=== PATIENT | female | born 1935 | race Caucasian/White ===

== ENCOUNTER 2024-10-09 02:12 | Inpatient (IN) | payer MEDICARE, OTHER ==
[~2024-10-09] VITALS: Ht 154.9 cm; Wt 50.4 kg
[2024-10-09 03:14] LABS: Basophils # (auto) 0 10 ^3/uL (0-0.2); Basophils % (auto) 0.5 % (0.0-2.0); Eosinophils # (auto) 0 10 ^3/uL (0-0.8); Eosinophils % (auto) 0.1 % (0.0-7.0); Hematocrit 36.8 % (41.0-53.0); Hemoglobin 12.3 g/dL (13.5-17.5); Lymphocytes # (auto) 0.9 10 ^3/uL (0.4-5.4); Mean Corpuscular Hemoglobin 29.8 pg (28.0-32.0); Mean Corpuscular Hgb Conc. 33.3 g/dL (32.0-36.0); Mean Corpuscular Volume 89.4 fL (80.0-100.0); Monocytes # (auto) 0.7 10 ^3/uL (0-1.3); Monocytes % (auto) 12.9 % (0.0-12.0); Neutrophils # (auto) 3.8 10 ^3/uL (1.6-8.6); Neutrophils % (auto) 70.5 % (37.0-80.0); Platelet Count (auto) 216 10^3/uL (140-450); Red Blood Cells 4.12 10^6/uL (4.5-5.90); Red Cell Distribution Width 13.3 % (11.8-14.3); White Blood Cell 5.4 10^3/uL (4.4-10.8)
[2024-10-09 03:26] LABS: Chloride 106 mmol/L (98-107); Potassium 3.8 mmol/L (3.5-5.1); Sodium 137 mmol/L (136-145)
[2024-10-09 03:27] LABS: Anion Gap 10 (5-15); Carbon Dioxide 21 mmol/L (20-31)
[2024-10-09 03:32] VITALS: PULSE 70; RESP 15; O2SAT 98
[2024-10-09 03:32] LABS: Blood Urea Nitrogen 23 mg/dL (9-23)
--- NOTE | 2024-10-09 03:53 | DVH ---
CHEST RADIOGRAPH Indication: chest pain Technique: Single frontal view of the chest was obtained Comparison: None IMPRESSION: Heart appears normal in size. The lungs appear clear without focal airspace opacity, effusion, or pn eumothorax
[2024-10-09 03:54] LABS: Glucose 106 mg/dL (74-106)
[2024-10-09 03:56] LABS: Urine Bacteria FEW /hpf (None Seen); Urine Blood Negative /uL (Negative); Urine Clarity Clear (Clear); Urine Color Colorless (Yellow); Urine Protein, UAD Negative (Negative); Urine Specific Gravity 1.007 (1.001-1.035); Urine Squamous Epithelial Cell FEW /hpf (<5); Urine Urobilinogen Normal (Negative); Urine WBC 3 /HPF (0-3); Urine pH 5.5 (5.0-9.0)
--- NOTE | 2024-10-09 05:38 | ECG ---
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
--- NOTE | 2024-10-09 05:38 | ECG ---
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
--- NOTE | 2024-10-09 05:38 | ECG ---
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
--- NOTE | 2024-10-09 06:01 | ED.PDOC ---
History of Present Illness HPI Comments 89 y/o F, with a history of CKF, HLD, and HTN, is BIBA for c/o left-sided chest pain, that radiates to her left-arm, nausea, and vomiting, today. Per EMS report, patient endorses on sudden and unprovoked onset of severe, 10/10 pain at around 2200, last night, with 1x episode of nausea and vomiting. Upon arrival to ED, patient endorses on pain subsiding since. She report no additional significant events, such as recent sick contact, strenuous activities, stressors, or further relevant medical history. Patient denies any chest pain, hematemesis, fever, chills, or other associated symptoms at this time. 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 Past Medical History PAST MEDICAL HISTORY: CKF, High Lipids, HTN Surgical History: Denies all surgeries Family History Family History: Unknown Social History Smoker: Non-Smoker Alcohol: Denies ETOH Use Drugs: Denies Drug Use Lives In: Home All Other Systems: Reviewed and Negative (Comprehensive systems review obtained and negative except for what is stated in the HPI.) Physical Exam General Appearance: No Apparent Distress, Normal HEENT: Normal ENT Inspection, Pharynx Normal, TMs Normal Neck: Full Range of Motion, Non-Tender, Normal, Normal Inspection Respiratory: Chest Non-Tender, Lungs Clear, No Accessory Muscle Use, No Respiratory Distress, Normal Breath Sounds Cardiovascular: No Edema, No JVD, No Murmur, No Gallop, Normal Peripheral Pulses, Regular Rate/Rhythm Breast Exam: Deferred Gastrointestinal: No Organomegaly, Non Tender, No Pulsatile Mass, Normal Bowel Sounds, Soft Genitalia: Deferred Pelvic: Deferred Rectal: Deferred Extremities: No calf tenderness, Normal capillary refill, Normal inspection, Normal range of motion, Non-tender, No pedal edema Musculoskeletal : Apperance: Normal Neurologic: Alert, court administrator II-XII nml as Tested, No Motor Deficits, Normal Affect, Normal Mood, No Sensory Deficits Cerebellar Function: Normal Reflexes: Normal Skin: Dry, Normal Color, Warm Lymphatic: No Adenopathy Was a procedure done? Was a procedure done?: No EKG EKG #1: Pulse Rate (adult): 71 [place]: Normal Cardiac Rhythm: NSR Block: None Hypertrophy: None ST: Normal EKG #2: Pulse Rate (adult): 68 [place]: Normal Cardiac Rhythm: NSR Block: None Hypertrophy: None ST: Normal Differential Dx Considerations may include: OR, PE, PNA, ACS, viral syndrome, URI, musculoskeletal pain, among others X-Ray, Labs, Meds, VS Vital Signs Date Time Temp Pulse Resp B/P (MAP) Pulse Ox O2 Delivery O2 Flow Rate FiO2 10/09/24 05:10 65 15 148/61 (90) 96 10/09/24 05:01 68 10/09/24 03:32 70 15 98 Room Air* 0 21 10/09/24 03:10 71 10/09/24 02:58 98.6 72 15 172/67 (102) 97 98.6 10/09/24 02:43 71 10/09/24 02:29 98.0 79 16 204/83 (123) 98 98.0 10/09/24 02:15 82 Lab Test 10/09/24 04:40 10/09/24 03:01 10/09/24 02:45 Range/Units Troponin I High Sensitivity 10 10 </=54 ng/L White Blood Count 5.4 4.4-10.8 10^3/uL Red Blood Count 4.12 L 4.5-5.90 10^6/uL Hemoglobin 12.3 L 13.5-17.5 g/dL Hematocrit 36.8 L 41.0-53.0 % Mean Corpuscular Volume 89.4 80.0-100.0 fL Mean Corpuscular Hemoglobin 29.8 28.0-32.0 pg Mean Corpuscular Hemoglobin Concent 33.3 32.0-36.0 g/dL Red Cell Distribution Width 13.3 11.8-14.3 % Platelet Count 216 140-450 10^3/uL Mean Platelet Volume 7.7 6.9-10.8 fL Neutrophils (%) (Auto) 70.5 37.0-80.0 % Lymphocytes (%) (Auto) 16.0 10.0-50.0 % Monocytes (%) (Auto) 12.9 H 0.0-12.0 % Eosinophils (%) (Auto) 0.1 0.0-7.0 % Basophils (%) (Auto) 0.5 0.0-2.0 % Neutrophils # (Auto) 3.8 1.6-8.6 10 ^3/uL Lymphocytes # (Auto) 0.9 0.4-5.4 10 ^3/uL Monocytes # (Auto) 0.7 0-1.3 10 ^3/uL Eosinophils # (Auto) 0 0-0.8 10 ^3/uL Basophils # (Auto) 0 0-0.2 10 ^3/uL Nucleated Red Blood Cells 0.0 % Sodium Level 137 136-145 mmol/L Potassium Level 3.8 3.5-5.1 mmol/L Chloride Level 106 98-107 mmol/L Carbon Dioxide Level 21 20-31 mmol/L Anion Gap 10 5-15 Blood Urea Nitrogen 23 9-23 mg/dL Creatinine 1.15 0.700-1.30 mg/dL Glomerular Filtration Rate Calc 61 >90 mL/min BUN/Creatinine Ratio 20.0 10.0-20.0 Serum Glucose 106 74-106 mg/dL Calcium Level 10.0 8.7-10.4 mg/dL Urine Color Colorless Yellow Urine Clarity Clear Clear Urine pH 5.5 5.0-9.0 Urine Specific [place] 1.007 1.001-1.035 Urine Protein Negative Negative Urine Ketones Negative Negative Urine Blood Negative Negative /uL Urine Nitrite Negative Negative Urine Bilirubin Negative Negative Urine Urobilinogen Normal Negative mg/dL Urine Leukocyte Esterase Negative Negative /uL Urine RBC 3 0 - 3 /hpf Urine Microscopic WBC 3 0-3 /HPF Urine Squamous Epithelial Cells Few <5 /hpf Urine Bacteria Few H None Seen /hpf Urine Glucose Normal Normal mg/dL [place] [id number] Ph: [phone] DIAGNOSTIC IMAGING Diagnostic Imaging Report : [id number] Signed PATIENT: ROSETTA GARCIA ACCT: [id number] UNIT: [id number] : 1935 LOC: ER ROOM / BED: / AGE / SEX: 89 / M ADM STATUS: REG ER SERVICE [id number] ORDERING PHYSICIAN: SHAMAR PARIKH MD PROCEDURE(s): CXRP - CHEST PORTABLE REASON: chest pain ORDER NUMBER(s): [id number], ACCESSION NUMBER(s): [id number] CHEST RADIOGRAPH Indication: chest pain Technique: Single frontal view of the chest was obtained Comparison: None IMPRESSION: Heart appears normal in size. The lungs appear clear without focal airspace opacity, effusion, or pneumothorax ATED BY: SANDRA DUBOIS MD DICTATED DATE/TIME: 10/09/24350 SIGNED BY: SANDRA DUBOIS MD SIGNED DATE/TIME: 10/09/24350 CC: Time of 1ST Reevaluation: 04:00 Reevaluation 1ST: Unchanged Patient Education/Counseling: Diagnosis, Treatment Family Education/Counseling: No Family Present Additional Information Previous visit documents reviewed: n/a The following tests were ordered, and results were reviewed by me: UA, troponin, CXR, CBC, BMP. EKG Additional Information was gathered from interviewing the following independent historians: EMS I reviewed and agreed with the following test results read by other providers: CXR I discussed treatment and results with medical personnel and: Patient Departure 1 Departure Time of Disposition: 06:01 (Patient presented with chest pain that was concerning for possible STEMI, ACS, PE, Pneumonia, Muscle Strain, COPD, Dissection. Data: 1. I ordered and reviewed the result of at least 3 labs including a CBC, BMP, and Troponin. 2. I independently interpreted the following tests: EKG which shows sinus arrhythmia and Chest X-ray which shows benign chest.Risk:This patient has a high risk of morbidity due to further diagnostic testing or treatment and may suffer from an acute cardiac or respiratory disorder. Workup reveals concern for ACS and patient should be admitted for further workup and possible expert consultation. ) Impression: Primary Impression: Acute chest pain Additional Impression: Shortness of breath Disposition: ADMITTED INPATIENT Admit to: Med Surg Condition: Serious Critical Care Note Critical Care Time?: Yes Critical care comment: Acute chest pain Authorized and Performed by: Shamar Parikh MD Total critical care time: Approximately 39 minutes Due to a high probability of clinically significant, life threatening deteriora tion, the patient required my highest level of preparedness to intervene emergently and I personally spent this critical care time directly and personally managing the patient. This critical care time included obtaining a history; examining the patient; pulse oximetry; ordering and review of studies; arranging urgent treatment with development of a management plan; evaluation of patient's response to treatment; frequent reassessment; and, discussions with other providers. This critical care time was performed to assess and manage the high probability of imminent, life-threatening deterioration that could result in multi-organ failure. It was exclusive of separately billable procedures and treating other patients and teaching time. Please see my other sections and the rest of the note for further information on patient assessment and treatment. Stability Stability form required: No Heart Score Heart Score: Heart Score Response (Comments) Value History Moderate Suspicious 1 EKG Normal 0 Age >65 2 Risk Factors >3 or Hx ASHD 2 Troponin Normal limit 0 Total 5 I personally scribed for SHAMAR PARIKH MD ([email or web address]) on 10/09/24 at 06:01. Electronically submitted by Aguila Allen ([email or web address]). SHAMAR PARIKH MD Oct 09, 2024 06:01
[2024-10-09 08:09] VITALS: PULSE 70; RESP 12; O2SAT 97
[2024-10-09] MEDS ORDERED: ATOR40TA52 PO (10:14)
[2024-10-09] MEDS ORDERED: LOSA-535 PO (10:14)
[2024-10-09] MEDS ORDERED: ONDANSETRON HCL 4 MG/2 ML VIAL IV PRN (10:15)
[2024-10-09] MEDS ORDERED: DOCUSATE SOD 100 MG CAP PO PRN (10:15)
[2024-10-09] MEDS ORDERED: ACETAMINOPHEN 325 MG TAB PO PRN (10:15)
[2024-10-09] MEDS ORDERED: NITROGLYCERIN 0.4 MG SL TAB SL PRN (10:15)
[2024-10-09] MEDS ORDERED: MORPHINE SULFATE INJ 2 MG/ml SYRG IV PRN (10:15)
--- NOTE | 2024-10-09 10:19 | DVHHP2 ---
History of Present Illness Reason for Visit: Chest Pain History of Present Illness Wendi Serna, is an 89-year-old female with past medical history of chronic renal insufficiency, hypertension, and hyperlipidemia, who came in for chest pain. Patient states she was awoken about 0200 with chest pain that radiated to her left arm. She states she felt like she was having a heart attack, so she woke up her family and had them call EMS. On assessment patient's rhythm appeared to have possible changes, another EKG was completed. Patient is having frequent PVCs. Cardiovascular: HTN, hyperipidemia Renal/: Chronic renal insuff Past Surgical History: Other (back and bladder surgery) Smoke: No ALCOHOL: none Drugs: None Lives: with Family Domestic Violence: Neg Review of Systems Constitutional: No: Fever, Chills, Sweats, Weakness, Malaise, Other Eyes: No: Pain, Vision change, Conjunctivae inflammation, Eyelid inflammation, Other, Redness ENT: No: Ear pain, Ear discharge, Nose pain, Nose discharge, Nose congestion, Mouth pain, Mouth swelling, Throat pain, Throat swelling, Other Respiratory: No: Cough, Dry, Shortness of breath, SOB with excertion, Wheezing, Hemoptysis, Pleuritic Pain, Sputum, Wheezing, Other Cardiovascular: Chest Pain (radiates to left arm); No: Palpitations, Orthopnea, Paroxysmal Noc. Dyspnea, Edema, Lt Headedness, Other Gastrointestinal: No: Nausea, Vomiting, Abdominal Pain, Diarrhea, Constipation, Melena, Hematochezia, Other Genitourinary: No Dysuria, No Frequency, No Incontinence, No Hematuria, No Retention, No Other Musculoskeletal: No: other, neck pain, shoulder pain, arm pain, back pain, hand pain, leg pain, foot pain Skin: No: Rash, Lesions, Jaundice, Bruising, Other Neurological: No: Weakness, Numbness, Incoordination, Change in speech, Confusion, Seizures, Other Allergies: Coded Allergies: NO KNOWN ALLERGIES (Unverified , 10/09/24) Exam Vital Signs Vital Signs Date Time Temp Pulse Resp B/P (MAP) Pulse Ox O2 Delivery O2 Flow Rate FiO2 10/09/24 08:09 70 12 97 Room Air* 0 21 10/09/24 07:45 98.1 162/65 (97) 98.1 General Appearance: Alert, Oriented X3, Cooperative, mild distress HEENT: Atraumatic, PERRLA, Mucous membr. moist/pink Respiratory: Clear to auscultation, Normal air movement Cardiovascular: Regular rate, Normal S1, Normal S2, Other (frequent PVCs) Abdominal: Normal bowel sounds, Soft, No tenderness, No hepatospenomegaly Extremities: No clubbing, No cyanosis, No edema, Normal pulses Skin: No rashes, No breakdown, No significant lesion Neuro: Normal gait, Normal speech, Strength at 5/5 X4 ext, Normal tone, Sensat ion intact Psych/Mental Status: Mental status NL, Mood NL Labs/Xrays Labs Test 10/09/24 06:40 10/09/24 03:01 10/09/24 02:45 Range/Units Troponin I High Sensitivity 9 </=54 ng/L White Blood Count 5.4 4.4-10.8 10^3/uL Red Blood Count 4.12 L 4.5-5.90 10^6/uL Hemoglobin 12.3 L 13.5-17.5 g/dL Hematocrit 36.8 L 41.0-53.0 % Mean Corpuscular Volume 89.4 80.0-100.0 fL Mean Corpuscular Hemoglobin 29.8 28.0-32.0 pg Mean Corpuscular Hemoglobin Concent 33.3 32.0-36.0 g/dL Red Cell Distribution Width 13.3 11.8-14.3 % Platelet Count 216 140-450 10^3/uL Mean Platelet Volume 7.7 6.9-10.8 fL Neutrophils (%) (Auto) 70.5 37.0-80.0 % Lymphocytes (%) (Auto) 16.0 10.0-50.0 % Monocytes (%) (Auto) 12.9 H 0.0-12.0 % Eosinophils (%) (Auto) 0.1 0.0-7.0 % Basophils (%) (Auto) 0.5 0.0-2.0 % Neutrophils # (Auto) 3.8 1.6-8.6 10 ^3/uL Lymphocytes # (Auto) 0.9 0.4-5.4 10 ^3/uL Monocytes # (Auto) 0.7 0-1.3 10 ^3/uL Eosinophils # (Auto) 0 0-0.8 10 ^3/uL Basophils # (Auto) 0 0-0.2 10 ^3/uL Nucleated Red Blood Cells 0.0 % Sodium Level 137 136-145 mmol/L Potassium Level 3.8 3.5-5.1 mmol/L Chloride Level 106 98-107 mmol/L Carbon Dioxide Level 21 20-31 mmol/L Anion Gap 10 5-15 Blood Urea Nitrogen 23 9-23 mg/dL Creatinine 1.15 0.700-1.30 mg/dL Glomerular Filtration Rate Calc 61 >90 mL/min BUN/Creatinine Ratio 20.0 10.0-20.0 Serum Glucose 106 74-106 mg/dL Calcium Level 10.0 8.7-10.4 mg/dL Urine Color Colorless Yellow Urine Clarity Clear Clear Urine pH 5.5 5.0-9.0 Urine Specific [place] 1.007 1.001-1.035 Urine Protein Negative Negative Urine Ketones Negative Negative Urine Blood Negative Negative /uL Urine Nitrite Negative Negative Urine Bilirubin Negative Negative Urine Urobilinogen Normal Negative mg/dL Urine Leukocyte Esterase Negative Negative /uL Urine RBC 3 0 - 3 /hpf Urine Microscopic WBC 3 0-3 /HPF Urine Squamous Epithelial Cells Few <5 /hpf Urine Bacteria Few H None Seen /hpf Urine Glucose Normal Normal mg/dL CHEST RADIOGRAPH IMPRESSION: Heart appears normal in size. 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 Procedure Category Date Status Time Admit ADMIT 10/09/24 Transmitted 10:07 Code Status CODE 10/09/24 Transmitted 10:07 2 Gm Sodium Diet DIET 10/09/24 Transmitted Lunch Hydrocodone-Acet PHA 10/09/24 Transmitted 5/325mg Tab ([place] 10:15 Ondansetron Hcl PHA 10/09/24 Transmitted (Zofran) 10:15 Docusate Sodium PHA 10/09/24 Transmitted Capsule (Colace 10:15 Complete Blood Count LAB 10/10/24 Verified 04:00 Comprehensive LAB 10/10/24 Verified Metabolic Panel 04:00 Echo 2d Mode Cardiac US 10/09/24 Transmitted DOP 10:07 Condition: Serious [place] 10/09/24 Transmitted 10:07 Acetaminophen Tablet PHA 10/09/24 Transmitted (Tylenol Tablet) 10:15 Nitroglycerin [facility] 10/09/24 Transmitted Sublingual (Ntrostat 10:15 Morphine Sulfate PHA 10/09/24 Transmitted Injection 10:15 Stat Ekg For Chest [facility] 10/09/24 Transmitted Pain 10:07 Notify Md Of Changes [facility] 10/09/24 Transmitted From Base 10:07 Flotation Tender For [facility] 10/09/24 Transmitted 24 Hours 10:07 Emergency Dysrhythmia [facility] 10/09/24 Transmitted Protocol 10:07 Rhythm Strips Once [facility] 10/09/24 Transmitted Every Shift 10:07 Oxygen By Nasal RT 10/09/24 Transmitted Cannula 10:07 * Cardiology Consult CONS 10/09/24 Transmitted 10:07 Date of Service: Oct 09, 2024 Billing Provider: MAYUR CHOU Common Visit Codes: [id number] INP/OBS CARE (MOD) MAYUR CHOU Oct 09, 2024 10:19
--- NOTE | 2024-10-09 12:11 | DVHINCON2 ---
Date Seen: Oct 09, 2024 Referring Physician SHAYY Cao Reason for Consultation Chest pain History of Present Illness This is an 89-year-old female who presented to the emergency room via EMS with a chief complaint of chest pain during sleep at 2200. Describes her chest pain as substernal, radiating to the left arm, constant, pressure-like, non provoked, and associated with an episode of vomiting prompting her to call 911. At time of assessment the patient denied any further chest pain. She underwent multiple 12 lead electrocardiograms x4 revealing a sinus rhythm with ventricular bigeminy, ventricular trigeminy, and multiple PVCs. There is no evidence of ischemia. Serial troponin levels are negative. Of note, the patient presented with a systolic blood pressure in the 200s mmHg. Significant medical history includes hypertension, dyslipidemia, and anemia. Past Medical History Past medical history reviewed. No other significant than mentioned above. Past Surgical History Bladder Back Family History Family history reviewed. Not significant for cardiovascular disease. Social History Denies the use of illicit drugs, alcohol, or tobacco use. Allergies: Coded Allergies: NO KNOWN ALLERGIES (Unverified , 10/09/24) Home Meds Reported Medications Atorvastatin Calcium (ATORVASTATIN CALCIUM) 40 Mg Tab, 1 TAB PO HS 10/09/24 Losartan Potassium (Losartan Potassium) 100 Mg Tab, 1 TAB PO DAILY 10/09/24 Home Meds Home medications reviewed. Current Medications Current Medications Medications (Trade) Dose Ordered Sig/Veronica Route PRN Reason Start Time Stop Time Status Last Admin Acetaminophen/ Hydrocodone Bitart ([place] 5/325MG Tab) 1 tab Q4HP PRN PO MODERATE PAIN (4-6 PAIN SCALE) 10/09/24 10:15 Ondansetron HCl (Zofran) 4 mg Q4HP PRN IV NAUSEA / VOMITING 10/09/24 10:15 Docusate Sodium (Colace Capsule) 100 mg BIDPRN PRN PO FOR CONSTIPATION 10/09/24 10:15 Acetaminophen (Tylenol Tablet) 650 mg Q6HP PRN PO PAIN SCALE 1-3 OR TEMP>100.4 10/09/24 10:15 Nitroglycerin (Ntrostat Sublingual) 0.4 mg Q5MINP PRN SL FOR CHEST PAIN 10/09/24 10:15 Morphine Sulfate 2 mg Q30M PRN IV FOR CHEST PAIN 10/09/24 10:15 Aspirin 81 mg DAILY PO 10/10/24 10:00 Patient Own Medication 1 tab HS PO 10/09/24 22:00 10/09/24 10:25 DC Patient Own Medication 1 tab DAILY PO 10/10/24 10:00 10/09/24 10:25 DC Atorvastatin Calcium (Lipitor) 40 mg HS PO 10/09/24 22:00 Losartan Potassium (Cozaar Tablet) 100 mg DAILY PO 10/10/24 10:00 Review of Systems Constitutional: No symptom reported Ears, Nose, & Throat: No symptom reported Eyes: No symptom reported Neurological: No symptoms reported Pulmonary/Respiratory: No symptom reported Cardiovascular: Chest pain Gastrointestinal: No symptom reported Genitourinary: No symptom reported Musculoskeletal: No symptom reported Skin: No symptom reported Psychiatric: No symptom reported Endocrine: No symptom reported Hemotologic/Lymphatic: No symptom reported Vital Signs Vital Signs Date Time Temp Pulse Resp B/P (MAP) Pulse Ox O2 Delivery O2 Flow Rate FiO2 10/09/24 08:09 70 12 97 Room Air* 0 21 10/09/24 07:45 98.1 162/65 (97) 98.1 Physical Exam General Appearance: Cooperative. Elder. Well nourished. In no acute distress Head Exam: Normal inspection Neck Exam: Normal inspection. Non-tender. Normal alignment Pulmonary/Respiratory: Chest non-tender. Clear bilateral breath sounds Cardiovascular/Chest: Regular rate and rhythm. S1, S2. Sinus rhythm with multiple PVCs. No murmurs. No JVD. Peripheral Pulses: 2+ Radial (R). 2+ Radial (L). 2+ Pedal (R). 2+ Pedal (L) Abdominal Exam: Normal bowel sounds. Soft. Nontender. No hepatospenomegaly. No masses Ankle Exam: Negative ankle edema Lower extremities: Negative lower extremity edema Neuro/Mental Status: A&O x4. Coherent Thoughts/Psych: Normal thought pattern. Appropriate mood and affect. Good judgement and insight. Pleasant Appearance: In no acute distress Skin Exam: Normal inspection. Normal color. Warm. Dry Labs/Diagnostic Data Labs Test 10/09/24 06:40 10/09/24 03:01 10/09/24 02:45 Range/Units Troponin I High Sensitivity 9 </=54 ng/L White Blood Count 5.4 4.4-10.8 10^3/uL Red Blood Count 4.12 L 4.5-5.90 10^6/uL Hemoglobin 12.3 L 13.5-17.5 g/dL Hematocrit 36.8 L 41.0-53.0 % Mean Corpuscular Volume 89.4 80.0-100.0 fL Mean Corpuscular Hemoglobin 29.8 28.0-32.0 pg Mean Corpuscular Hemoglobin Concent 33.3 32.0-36.0 g/dL Red Cell Distribution Width 13.3 11.8-14.3 % Platelet Count 216 140-450 10^3/uL Mean Platelet Volume 7.7 6.9-10.8 fL Neutrophils (%) (Auto) 70.5 37.0-80.0 % Lymphocytes (%) (Auto) 16.0 10.0-50.0 % Monocytes (%) (Auto) 12.9 H 0.0-12.0 % Eosinophils (%) (Auto) 0.1 0.0-7.0 % Basophils (%) (Auto) 0.5 0.0-2.0 % Neutrophils # (Auto) 3.8 1.6-8.6 10 ^3/uL Lymphocytes # (Auto) 0.9 0.4-5.4 10 ^3/uL Monocytes # (Auto) 0.7 0-1.3 10 ^3/uL Eosinophils # (Auto) 0 0-0.8 10 ^3/uL Basophils # (Auto) 0 0-0.2 10 ^3/uL Nucleated Red Blood Cells 0.0 % Sodium Level 137 136-145 mmol/L Potassium Level 3.8 3.5-5.1 mmol/L Chloride Level 106 98-107 mmol/L Carbon Dioxide Level 21 20-31 mmol/L Anion Gap 10 5-15 Blood Urea Nitrogen 23 9-23 mg/dL Creatinine 1.15 0.700-1.30 mg/dL Glomerular Filtration Rate Calc 61 >90 mL/min BUN/Creatinine Ratio 20.0 10.0-20.0 Serum Glucose 106 74-106 mg/dL Calcium Level 10.0 8.7-10.4 mg/dL Urine Color Colorless Yellow Urine Clarity Clear Clear Urine pH 5.5 5.0-9.0 Urine Specific [place] 1.007 1.001-1.035 Urine Protein Negative Negative Urine Ketones Negative Negative Urine Blood Negative Negative /uL Urine Nitrite Negative Negative Urine Bilirubin Negative Negative Urine Urobilinogen Normal Negative mg/dL Urine Leukocyte Esterase Negative Negative /uL Urine RBC 3 0 - 3 /hpf Urine Microscopic WBC 3 0-3 /HPF Urine Squamous Epithelial Cells Few <5 /hpf Urine Bacteria Few H None Seen /hpf Urine Glucose Normal Normal mg/dL Assessment Chest pain in the setting of hypertensive urgency High burden of premature ventricular contractions Rule out structural heart disease Hypertension Dyslipidemia Plan/Recommendation (Dr. Ferreira) We will continue further cardiac evaluation with a transthoracic echocardiogram to rule out structural heart disease. In the meantime, initiate aggressive blood pressure control with metoprolol in addition to magnesium given high PVC burden. Target SBP <140 mmHg. Discussion held for ischemic work-up, patient states she declines any invasive cardiac procedures given her advanced age. Continue aggressive blood pressure control. Patient can benefit from an outpatient event monitro. Monitor ECG changes and notify. In the setting of an unremarkable echocardiogram, there is no further cardiac workup indicated at this time. Thank you for allowing us to participate in this patient's care. Please call if you have any questions or concerns. This medical document was created using an electronic medical record system with voice recognition software and computerized dictation system. Although this document has been carefully reviewed, there might still be some phonetic and typographical errors. Occasional wrong-word or ``sound-alike substitutions may have occurred due to the inherent limitations of voice recognition software. These areas are purely typographical due to imperfections of the software programs and do not reflect any compromise in the patient's medical care. Please read the chart carefully and recognize, using context, where these subst itutions have occurred. Plan discussed with: Patient, Other NYHA Physical activity limitations: NA Date of Service: Oct 09, 2024 Billing Provider: MILTON LAWSON Cardiology Common Codes: [id number] INP/OBS CARE (High) MILTON LAWSON [facility] Oct 09, 2024 12:11
[2024-10-09] MEDS ORDERED: hydrALAZINE HCL 20 MG/ML VL IV PRN (12:15)
[2024-10-09] MEDS: ASPirin 81 mg TAB PO ONE (12:18)
[2024-10-09] MEDS: MAGNESIUM OXIDE 400 MG TAB PO ONE (12:20)
[2024-10-09] MEDS: METOPROLOL TARTRATE 25 MG TAB PO ONE (12:21)
[2024-10-09 20:30] VITALS: PULSE 72; RESP 12; O2SAT 96
[2024-10-09 21:20] VITALS: BP 164/73; PULSE 67; RESP 15; TEMP 98; O2SAT 96
[2024-10-09] MEDS: ATORVASTATIN 20 MG TAB PO SCH (21:47)
[2024-10-09] MEDS: METOPROLOL TARTRATE 25 MG TAB PO SCH (21:48)
[2024-10-09] MEDS: HYDROcodone-ACET 5/325MG TAB PO PRN (21:57)
[2024-10-09 21:59] VITALS: BP 164/75; PULSE 67; RESP 15; TEMP 98; O2SAT 96
[2024-10-09] MEDS ORDERED: OMEP20TA PO (21:59)
[2024-10-09] MEDS ORDERED: PATIENTS OWN MEDICATION (Atorvastatin Calcium 1 TAB) PO SCH (22:00)
[2024-10-10 01:00] VITALS: BP 134/63; PULSE 65; RESP 15; TEMP 98; O2SAT 97
[2024-10-10 05:00] VITALS: BP 151/62; PULSE 58; RESP 15; TEMP 97.8; O2SAT 96
[2024-10-10 06:18] LABS: Basophils # (auto) 0 10 ^3/uL (0-0.2); Basophils % (auto) 0.7 % (0.0-2.0); Eosinophils # (auto) 0 10 ^3/uL (0-0.8); Eosinophils % (auto) 0.3 % (0.0-7.0); Hematocrit 33.9 % (36.0-46.0); Hemoglobin 11.4 g/dL (12.2-16.2); Lymphocytes % (auto) 29.8 % (10.0-50.0); Mean Corpuscular Hemoglobin 30.2 pg (28.0-32.0); Mean Corpuscular Hgb Conc. 33.7 g/dL (32.0-36.0); Mean Corpuscular Volume 89.6 fL (80.0-100.0); Monocytes # (auto) 0.5 10 ^3/uL (0-1.3); Neutrophils # (auto) 1.9 10 ^3/uL (1.6-8.6); Neutrophils % (auto) 54.2 % (37.0-80.0); Platelet Count (auto) 206 10^3/uL (140-450); Red Blood Cells 3.78 10^6/uL (4.0-5.20); White Blood Cell 3.4 10^3/uL (4.4-10.8)
[2024-10-10 06:41] LABS: Albumin 4.3 g/dL (3.2-4.8); Alkaline Phosphatase 72 U/L (46-116); Anion Gap 8 (5-15); Calcium 9.5 mg/dL (8.7-10.4); Carbon Dioxide 23 mmol/L (20-31); Chloride 107 mmol/L (98-107); Glucose 93 mg/dL (74-106); Potassium 4.3 mmol/L (3.5-5.1); Sodium 138 mmol/L (136-145); Total Protein 6.3 g/dL (5.7-8.2)
[2024-10-10 06:42] LABS: Bilirubin, Total 0.5 mg/dL (0.2-1.0)
[2024-10-10 06:46] LABS: Alanine Aminotransferase 120 U/L (7-40); Aspartate Aminotransferase 74 U/L (13-40); Blood Urea Nitrogen 29 mg/dL (9-23)
[2024-10-10 08:00] VITALS: PULSE 52
[2024-10-10] MEDS: MAGNESIUM OXIDE 400 MG TAB PO SCH (08:54)
[2024-10-10] MEDS: ASPirin 81 mg TAB PO SCH (08:55)
[2024-10-10] MEDS: LOSARTAN POTASSIUM 25 MG TAB PO SCH (08:56)
[2024-10-10 09:00] VITALS: BP 138/63; PULSE 59; RESP 16; TEMP 98.2; O2SAT 95
[2024-10-10] MEDS ORDERED: LOSARTAN POTASSIUM 50 MG TAB PO SCH (10:00)
[2024-10-10] MEDS ORDERED: PATIENTS OWN MEDICATION (Losartan Potassium 1 TAB) PO SCH (10:00)
--- NOTE | 2024-10-10 12:32 | DVHPN2 ---
Consult Progress Note Date Seen: Oct 10, 2024 Subjective Review of Systems: CVS:Normal, RESPIRATORY:Normal, NEURO:Normal Other Systems: Denies any cardiac symptoms Objective vital signs Vital Sign Date Time Temp Pulse Resp B/P (MAP) Pulse Ox O2 Delivery O2 Flow Rate FiO2 10/10/24 09:00 98.2 59 16 138/63 (88) 95 98.2 10/10/24 07:58 Room Air* 0 21 Total Intake and Output 10/09/24 10/09/24 10/10/24 15:00 23:00 07:00 Intake Total 40 ml Balance 40 ml medications Current Medications Medications Dose Ordered Sig/Veronica Route Start Time Stop Time Status Last Admin Dose Admin Acetaminophen/ Hydrocodone Bitart 1 tab Q4HP PRN PO 10/09/24 10:15 10/10/24 08:55 1 TAB Ondansetron HCl 4 mg Q4HP PRN IV 10/09/24 10:15 Docusate Sodium 100 mg BIDPRN PRN PO 10/09/24 10:15 Acetaminophen 650 mg Q6HP PRN PO 10/09/24 10:15 Nitroglycerin 0.4 mg Q5MINP PRN SL 10/09/24 10:15 Morphine Sulfate 2 mg Q30M PRN IV 10/09/24 10:15 Aspirin 81 mg DAILY PO 10/10/24 10:00 10/10/24 08:55 81 MG Atorvastatin Calcium 40 mg HS PO 10/09/24 22:00 10/09/24 21:47 40 MG Metoprolol Tartrate 25 mg BID PO 10/09/24 22:00 10/10/24 08:57 25 MG Magnesium Oxide 400 mg DAILY PO 10/10/24 10:00 10/10/24 08:54 400 MG Hydralazine HCl 10 mg Q6HP PRN IV 10/09/24 12:15 Losartan Potassium 25 mg DAILY PO 10/10/24 10:00 10/10/24 08:56 25 MG Examination: LUNGS:Normal, CVS:Normal, NEURO:Normal laboratory and microbiology Laboratory Tests 10/10/24 04:55 Test 10/10/24 04:55 Range/Units Serum Glucose 93 74-106 mg/dL Problem List/Assessment/Plan Problem List/Assessment/Plan Chest pain in the setting of hypertensive urgency High burden of premature ventricular contractions Chronic compensated HFrEF, newly diagnosed Hypertension Dyslipidemia Plan/Recommendation (Dr. Ferreira) Transthoracic echocardiogram revealed EF about 40% with the arterial hypokinesis. Initiate GDMT for CHF in addition to magnesium given high PVC burden. Discussion held for ischemic work-up, patient states she declines any invasive cardiac procedures given her advanced age. Patient can benefit from an outpatient event monitor. Follow-up with Cardiology within 3-4 weeks post- discharge. There is no further cardiac workup indicated at this time. Kindly call if in need to re-consult. Thank you for allowing us to participate in this patient's care. This medical document was created using an electronic medical record system with voice recognition software and computerized dictation system. Although this document has been carefully reviewed, there might still be some phonetic and typographical errors. Occasional wrong-word or ``sound-alike substitutions may have occurred due to the inherent limitations of voice recognition software. These areas are purely typographical due to imperfections of the software programs and do not reflect any compromise in the patient's medical care. Please read the chart carefully and recognize, using context, where these substitutions have occurred. Plan discussed with: Patient, Other Date of Service: Oct 10, 2024 Billing Provider: MILTON LAWSON Cardiology Common Codes: [id number] INP/OBS CARE(Mod) MILTON LAWSON Oct 10, 2024 12:32
[2024-10-10 13:00] VITALS: BP 139/62; PULSE 50; RESP 16; TEMP 97.7; O2SAT 93
--- NOTE | 2024-10-10 13:37 | DVHPN2 ---
Reviewed: Care Plan, H&P, Labs, Medications, Previous Orders, Radiology Changes from previous H/P or p: No Changes Eyes: No Pain, No Vision change, No Conjunctivae inflammation, No Eyelid inflammation, No Other, No Redness ENT: No Ear pain, No Ear discharge, No Nose pain, No Nose discharge, No Nose congestion, No Mouth pain, No Mouth swelling, No Throat pain, No Throat swelling, No Other Cardiovascular: Chest Pain (radiates to left arm); No Palpitations, No Orthopnea, No Paroxysmal Noc. Dyspnea, No Edema, No Lt Headedness, No Other Respiratory: No Cough, No Dry, No Shortness of breath, No SOB with excertion, No Wheezing, No Hemoptysis, No Pleuritic Pain, No Sputum, No Other Gastrointestinal: No Nausea, No Vomiting, No Abdominal Pain, No Diarrhea, No Constipation, No Melena, No Hematochezia, No Other Genitourinary: No Dysuria, No Frequency, No Incontinence, No Hematuria, No Retention, No Other Musculoskeletal: No other, No neck pain, No shoulder pain, No arm pain, No back pain, No hand pain, No leg pain, No foot pain Skin: No Rash, No Lesions, No Jaundice, No Bruising, No Other Objective Vitals Vital Signs Date Time Temp Pulse Resp B/P (MAP) Pulse Ox O2 Delivery O2 Flow Rate FiO2 10/10/24 09:00 98.2 59 16 138/63 (88) 95 98.2 10/10/24 07:58 Room Air* 0 21 Intake/Output Intake and Output 10/10/24 07:00 Intake Total 40 ml Balance 40 ml Intake Oral 40 ml # Voids 4 # Bowel Movements 1 Medications Current Medications Medications Dose Ordered Sig/Veronica Route Start Time Stop Time Status Last Admin Dose Admin Acetaminophen/ Hydrocodone Bitart 1 tab Q4HP PRN PO 10/09/24 10:15 10/10/24 08:55 1 TAB Ondansetron HCl 4 mg Q4HP PRN IV 10/09/24 10:15 Docusate Sodium 100 mg BIDPRN PRN PO 10/09/24 10:15 Acetaminophen 650 mg Q6HP PRN PO 10/09/24 10:15 Nitroglycerin 0.4 mg Q5MINP PRN SL 10/09/24 10:15 Morphine Sulfate 2 mg Q30M PRN IV 10/09/24 10:15 Aspirin 81 mg DAILY PO 10/10/24 10:00 10/10/24 08:55 81 MG Atorvastatin Calcium 40 mg HS PO 10/09/24 22:00 10/09/24 21:47 40 MG Magnesium Oxide 400 mg DAILY PO 10/10/24 10:00 10/10/24 08:54 400 MG Hydralazine HCl 10 mg Q6HP PRN IV 10/09/24 12:15 Losartan Potassium 25 mg DAILY PO 10/10/24 10:00 10/10/24 08:56 25 MG Metoprolol Tartrate 12.5 mg BID PO 10/10/24 22:00 Laboratory Results Laboratory Tests 10/10/24 04:55 Chemistry Test 10/10/24 04:55 Albumin 4.3 g/dL (3.2-4.8) Calcium Level 9.5 mg/dL (8.7-10.4) Total Protein 6.3 g/dL (5.7-8.2) LFT Test 10/10/24 04:55 Alanine Aminotransferase (ALT) 120 U/L (7-40) H Alkaline Phosphatase 72 U/L (46-116) Aspartate Amino Transferase (AST) 74 U/L (13-40) H Total Bilirubin 0.5 mg/dL (0.2-1.0) Urinalysis Test 10/09/24 02:45 Urine Color Colorless (Yellow) Urine Clarity Clear (Clear) Urine pH 5.5 (5.0-9.0) Urine Specific [place] 1.007 (1.001-1.035) Urine Protein Negative (Negative) Urine Ketones Negative (Negative) Urine Blood Negative /uL (Negative) Urine Nitrite Negative (Negative) Urine Bilirubin Negative (Negative) Urine Urobilinogen Normal mg/dL (Negative) Urine Leukocyte Esterase Negative /uL (Negative) Urine RBC 3 /hpf (0 - 3) Urine Microscopic WBC 3 /HPF (0-3) Urine Squamous Epithelial Cells Few /hpf (<5) Urine Bacteria Few /hpf (None Seen) H Urine Glucose Normal mg/dL (Normal) Labs and/or images reviewed: Labs reviewed by me, Image(s) reviewed by me Assessment/Plan Assessment/Plan Chest pain in the setting of hypertensive urgency METOPROLOL, CARDIOLOGY CONSULT APPRECIATED High burden of premature ventricular contractions MAGNESIUM Rule out structural heart disease Hypertension Dyslipidemia ECHOCARDIOGRAM PENDING PATIENT REQUESTING TO BE DISCHARGED HOME Plan discussed with: Patient Date of Service: Oct 10, 2024 Billing Provider: DORINDA DOSS MD Common Visit Codes: [id number] INP/OBS CARE(HIGH) DORINDA DOSS MD Oct 10, 2024 13:37
--- NOTE | 2024-10-10 13:47 | DVHDS2 ---
Discharge Summary Date of Admission Oct 09, 2024 at 10:07 Date of Discharge: Oct 10, 2024 Admitting Diagnosis Chest pain Wounds: None Labs/Diagnostic Data: Laboratory Results Test 10/10/24 04:55 10/09/24 06:40 10/09/24 04:40 10/09/24 03:01 White Blood Count 3.4 10^3/uL (4.4-10.8) Red Blood Count 3.78 10^6/uL (4.0-5.20) Hemoglobin 11.4 g/dL (12.2-16.2) Hematocrit 33.9 % (36.0-46.0) Mean Corpuscular Volume 89.6 fL (80.0-100.0) Mean Corpuscular Hemoglobin 30.2 pg (28.0-32.0) Mean Corpuscular Hemoglobin Concent 33.7 g/dL (32.0-36.0) Red Cell Distribution Width 13.0 % (11.8-14.3) Platelet Count 206 10^3/uL (140-450) Mean Platelet Volume 8.2 fL (6.9-10.8) Neutrophils (%) (Auto) 54.2 % (37.0-80.0) Lymphocytes (%) (Auto) 29.8 % (10.0-50.0) Monocytes (%) (Auto) 15.0 % (0.0-12.0) Eosinophils (%) (Auto) 0.3 % (0.0-7.0) Basophils (%) (Auto) 0.7 % (0.0-2.0) Neutrophils # (Auto) 1.9 10 ^3/uL (1.6-8.6) Lymphocytes # (Auto) 1.0 10 ^3/uL (0.4-5.4) Monocytes # (Auto) 0.5 10 ^3/uL (0-1.3) Eosinophils # (Auto) 0 10 ^3/uL (0-0.8) Basophils # (Auto) 0 10 ^3/uL (0-0.2) Nucleated Red Blood Cells 0.0 % Sodium Level 138 mmol/L (136-145) Potassium Level 4.3 mmol/L (3.5-5.1) Chloride Level 107 mmol/L (98-107) Carbon Dioxide Level 23 mmol/L (20-31) Anion Gap 8 (5-15) Blood Urea Nitrogen 29 mg/dL (9-23) Creatinine 1.26 mg/dL (0.550-1.02) Glomerular Filtration Rate Calc 41 mL/min (>90) BUN/Creatinine Ratio 23.0 (10.0-20.0) Serum Glucose 93 mg/dL (74-106) Calcium Level 9.5 mg/dL (8.7-10.4) Total Bilirubin 0.5 mg/dL (0.2-1.0) Aspartate Amino Transferase (AST) 74 U/L (13-40) Alanine Aminotransferase (ALT) 120 U/L (7-40) Alkaline Phosphatase 72 U/L (46-116) Total Protein 6.3 g/dL (5.7-8.2) Albumin 4.3 g/dL (3.2-4.8) Troponin I High Sensitivity 9 ng/L (</=54) Thyroid Stimulating Hormone (TSH) 1.42 uIU/mL (0.55-4.78) Magnesium Level 2.2 mg/dL (1.6-2.6) B-Type Natriuretic Peptide 99.90 pg/mL (0-100) Test 10/09/24 02:45 Urine Color Colorless (Yellow) Urine Clarity Clear (Clear) Urine pH 5.5 (5.0-9.0) Urine Specific [place] 1.007 (1.001-1.035) Urine Protein Negative (Negative) Urine Ketones Negative (Negative) Urine Blood Negative /uL (Negative) Urine Nitrite Negative (Negative) Urine Bilirubin Negative (Negative) Urine Urobilinogen Normal mg/dL (Negative) Urine Leukocyte Esterase Negative /uL (Negative) Urine RBC 3 /hpf (0 - 3) Urine Microscopic WBC 3 /HPF (0-3) Urine Squamous Epithelial Cells Few /hpf (<5) Urine Bacteria Few /hpf (None Seen) Urine Glucose Normal mg/dL (Normal) Other Laboratory Tests 10/10/24 04:55 Brief Hx & Hospital Course: [age] year-old female with a history of hypertension hyperlipidemia came in complaining of chest pain troponin negative x3 seen by Cardiology placed on metoprolol tartrate and magnesium. The patient at the time of discharge is afebrile no chest pain vital signs stable cleared for discharge by Cardiology. She will follow up with the primary Dr in [facility] group Dr Shayne Haynes. Consults/Reason for consult Cardiology consult Dr. 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 Patient was counseled about treatment plan, medications, possible side effects, patientverbalized understanding. All questions were answered to the best of my ability. This discharge took greater then 30 minutes in planning, reviewing documentation, counseling the patient, and discussing with other team members." ASSESSMENT ASSESSMENT Hospital Course Improved Assessment Chest pain in the setting of hypertensive urgency METOPROLOL, CARDIOLOGY CONSULT APPRECIATED High burden of premature ventricular contractions MAGNESIUM Rule out structural heart disease Hypertension Dyslipidemia Date of Service: Oct 10, 2024 Billing Provider: DORINDA DOSS MD Common Visit Codes: [id number] DISCH DAY >30min DORINDA DOSS MD Oct 10, 2024 13:47
--- NOTE | 2024-10-10 13:58 | DVHSR ---
APPROVED REPORT EXAM: Two-dimensional and M-mode echocardiogram with Doppler and color Doppler. Blood Pressure: 162/65 mmHg INDICATION ACS RISK FACTORS Height: 60, Weight: 139 DIMENSIONS LVDd (3.8-5.7cm)LA (2D) (1.9-4.0cm)Aortic Root3.6 (2.0-3.7cm) LVDs (2.5-4.0cm)LA (MM) (1.9-4.0cm)Aortic Cusp Exc1.1 (1.5-2.0cm) EF (%) 45.0 (55-70%)Rt. Atrium (1.9-4.0cm)Asc. Aorta cm Mitral Valve MitralMitral Stenosis E wave0.92m/sMV Mean GR.mmHg A wave1.28m/sMV Peak GR.mmHg E/A ratio0.72D MVAcm2 DECEL [id number] 1/2 [id number] IVRTmsDop MVA4.81cm2 Aortic Valve Aortic ValveAortic Stenosis V10.80m/Lola Mean GR.5mmHg V21.49m/Lola Peak GR.9mmHg LVOT Diameter2.2 (1.8-2.4cm)Doppler AVA2.04cm2 Pulmonic Valve V21.14m/s Tricuspid Valve TR Velocity2.35m/s [id number] Other Information Technically limited study due to body habitus. Conclusion Technically good study. Sinus rhythm. Aortic root enlargement. Mild aortic sclerosis without stenosis. Mild mitral annular calcification. Left ventricular function is diminished. EF is about 40% with anterior hypokinesis. Right ventricu lar function is normal. Mild tricuspid regurgitation. No pericardial effusion masses or vegetations.
[2024-10-10] MEDS ORDERED: SPIR25TA8 PO (15:02)
[2024-10-10] MEDS ORDERED: METO25TA5 PO (15:02)
[2024-10-10] MEDS ORDERED: EMPA1TAB PO (15:02)
[2024-10-10] MEDS ORDERED: METOPROLOL TARTRATE 25 MG TAB PO SCH (22:00)
[2024-10-11] MEDS ORDERED: SPIRONOLACTONE 25 MG TAB PO SCH (10:00)
[2024-10-11] MEDS ORDERED: EMPAGLIFLOZIN 10 MG TAB PO SCH (10:00)
== END 2024-10-10 16:16 | disposition home or self-care (01) | DRG 305 ==
LOC: EDBD 02:12 → ER 02:12 → EDSEX 02:12 → OVERFLOW 10:07 → ER 10:11 → TELE-WESTW 20:58
PROVIDERS: ADMIT Family Medicine; ATTEND Family Medicine
DX: I16.0 Hypertensive urgency (principal); I50.22 Chronic systolic (congestive) heart failure; E78.5 Hyperlipidemia, unspecified; I49.3 Ventricular premature depolarization; I12.9 Hypertensive chronic kidney disease with stage 1 through stage 4 chronic kidney disease, or unspecified chronic kidney disease; N18.9 Chronic kidney disease, unspecified; I25.2 Old myocardial infarction; Z79.899 Other long term (current) drug therapy; Z79.82 Long term (current) use of aspirin
CPT/HCPCS: 36415; 71045; 80048; 80053; 81001; 83735; 83880; 84443; 84484; 85025; 86803; 87340; 93005; 93306; 99291; G0378